=== PATIENT | male | born 1980 | race Caucasian/White ===

== ENCOUNTER 2016-12-30 13:47 | Emergency (ER) | payer BC, MEDICAID ==
[~2016-12-30] VITALS: Ht 177.8 cm; Wt 68.0 kg
[~2016-12-30 13:47] MED LIST: CYCLOBENZAPRINE; GABAPENTIN; tramadol
[2016-12-30 14:35] VITALS: BP 112/64
[2016-12-30] MEDS ORDERED: OXYCODONE HCL/ACETAMINOPHEN 5/325MG TABLET PO ONE (14:45)
== END 2016-12-30 16:17 | disposition home or self-care (01) ==
LOC: ER 13:47
DX: S00.93XA Contusion of unspecified part of head, initial encounter (principal); S80.812A Abrasion, left lower leg, initial encounter; S80.811A Abrasion, right lower leg, initial encounter; V13.4XXA Pedal cycle driver injured in collision with car, pick-up truck or van in traffic accident, initial encounter; Y93.89 Activity, other specified; Y92.488 Other paved roadways as the place of occurrence of the external cause
CPT/HCPCS: 70450; 73590; 99284

== ENCOUNTER 2017-09-07 08:37 | Emergency (ER) | payer BC, MEDICAID ==
[~2017-09-07] VITALS: Ht 177.8 cm; Wt 68.0 kg
[2017-09-07] MEDS ORDERED: KETOROLAC 60MG/2ML VIAL IM ONE (12:30)
[2017-09-07 13:15] VITALS: BP 109/70
== END 2017-09-07 13:45 | disposition home or self-care (01) ==
LOC: ER 08:37
DX: S62.616A Displaced fracture of proximal phalanx of right little finger, initial encounter for closed fracture (principal); M54.30 Sciatica, unspecified side; F12.10 Cannabis abuse, uncomplicated; V49.9XXA Car occupant (driver) (passenger) injured in unspecified traffic accident, initial encounter; Y93.89 Activity, other specified; Y92.89 Other specified places as the place of occurrence of the external cause; Y99.8 Other external cause status
CPT/HCPCS: 29105; 73100; 73130; 96372; 99284; J1885

== ENCOUNTER 2018-04-23 15:57 | Emergency (ER) | payer SELFPAY ==
[~2018-04-23] VITALS: Ht 180.3 cm; Wt 68.0 kg
[2018-04-23] MEDS ORDERED: TRAMADOL 50MG TABLET PO ONE (18:30)
[2018-04-23] MEDS ORDERED: IBUPROFEN 600MG TABLET PO ONE (18:30)
[2018-04-23 20:25] VITALS: BP 105/50
== END 2018-04-23 20:30 | disposition home or self-care (01) ==
LOC: ER 18:33
DX: S39.82XA Other specified injuries of lower back, initial encounter (principal); W11.XXXA Fall on and from ladder, initial encounter; Y93.89 Activity, other specified; Y92.9 Unspecified place or not applicable; Z87.11 Personal history of peptic ulcer disease
CPT/HCPCS: 71045; 72100; 99284

== ENCOUNTER 2024-04-25 14:11 | Emergency (ER) | payer MEDICAID ==
[~2024-04-25] VITALS: Ht 165.1 cm; Wt 74.8 kg
[2024-04-25 14:24] VITALS: BP 111/80; TEMP 98.3; O2SAT 100
[2024-04-25 14:26] VITALS: PULSE 80; RESP 16; O2SAT 99
[2024-04-25] MEDS: FLUORESCEIN SODIUM 1MG/STRIP BOTHEYE ONE (15:00)
[2024-04-25] MEDS: BALANCED SALT IRRIG SOLN 15ML IR ONE (15:00)
[2024-04-25] MEDS: TETRACAINE 0.5% OPHTH DROPS 4ML RIGHTEYE ONE (15:00)
[2024-04-25] MEDS ORDERED: PROP1DRO2 MT (15:11)
[2024-04-25] MEDS ORDERED: IBUPROFEN 600MG TABLET PO ONE (15:15)
[2024-04-25] MEDS ORDERED: PROP1DRO2 OP (15:34)
== END 2024-04-25 15:45 | disposition home or self-care (01) ==
LOC: ER 14:11
DX: R51.9 Headache, unspecified (principal)
CPT/HCPCS: 99283